=== PATIENT | female | born 1940 ===

== ENCOUNTER 2018-01-19 11:20 | Emergency (ER) | payer MEDICARE ==
[2018-01-19 11:41] VITALS: BMI 31.7
[2018-01-19 11:51] VITALS: RESP 18
--- NOTE | 2018-01-19 12:59 | RAD ---
PROCEDURE: Radiographs of the left elbow. HISTORY: r/o fx COMPARISON: No prior. FINDINGS: BONES: Bone alignment is normal. There is no acute displaced fracture or bone destruction. There is diffuse bone demineralization. JOINTS: Normal. No osteoarthritis. SOFT TISSUES: Normal. JOINT EFFUSION: None. OTHER FINDINGS: None IMPRESSION: No acute displaced fracture or dislocation.
--- NOTE | 2018-01-19 13:03 | RAD ---
PROCEDURE: Left Hand Radiographs. HISTORY: r/o fx COMPARISON: None. FINDINGS: BONES: There is an acute nondisplaced fracture in the base of the proximal phalanx of the little finger. Bone alignment is normal. There is diffuse bone demineralization. JOINTS: Normal. No osteoarthritic changes. SOFT TISSUES: There is soft tissue swelling in the proximal little finger. OTHER FINDINGS: None. IMPRESSION: Acute nondisplaced fracture in the base of the proximal phalanx of the little finger with overlying soft tissue swelling.
[2018-01-19 14:06] VITALS: BP 135/76; PULSE 85; TEMP 98.9; O2SAT 98
--- NOTE | 2018-01-19 15:58 | ED PDOC ---
Arrival/HPI - General Chief Complaint: Trauma Time Seen by Provider: 01/19/18 12:07 Historian: Patient - History of Present Illness Narrative History of Present Illness (Text): 01/19/18 15:54 A 77 year old female presents to the emergency department complaining of left hand pain after a mechanical fall 6 days ago. Patient reports she tripped and extended her left arm to catch her fall. She denies any symptoms prior to fall. Patient did not seek any medical care prior to todays visit. Patient denies any other injuries, loss of consciousness, head trauma, headache, dizziness, neck pain, nausea, vomiting, abdominal pain, back pain, chest pain, shortness of breath or any other complaints. Time/Duration: Other (6 days ago ) Symptom Course: Unchanged Context: Tripped Past Medical History - Provider Review Nursing Documentation Reviewed: Yes - Infectious Disease Hx of Infectious Diseases: None - Reproductive Menopause: Yes - Cardiac Hx Hypertension: Yes - Musculoskeletal/Rheumatological Hx Arthritis: Yes - Psychiatric Hx Substance Use: No Family/Social History - Physician Review Nursing Documentation Reviewed: Yes Family/Social History: No Known Family HX Smoking Status: Never Smoked Hx Alcohol Use: No Hx Substance Use: No Allergies/Home Meds Allergies/Adverse Reactions: Allergies No Known Allergies Allergy (Unverified 01/19/18 12:07) Review of Systems - Physician Review All systems were reviewed & negative as marked: Yes - Review of Systems Constitutional: absent: Fevers, Night Sweats Respiratory: absent: SOB Cardiovascular: absent: Chest Pain Gastrointestinal: absent: Abdominal Pain, Nausea, Vomiting Musculoskeletal: Other (left hand pain). absent: Back Pain, Neck Pain Neurological: absent: Headache, Dizziness Physical Exam Vital Signs Reviewed: Yes Vital Signs Temp Pulse Resp BP Pulse Ox 01/19/18 14:05 98.9 F 85 18 135/76 98 01/19/18 11:50 99.0 F 90 18 147/87 97 Temperature: Afebrile Blood Pressure: Normal Pulse: Regular Respiratory Rate: Normal Appearance: Positive for: Well-Appearing, Non-Toxic, Comfortable Pain Distress: None Mental Status: Positive for: Alert and Oriented X 3 - Systems Exam Head: Present: Atraumatic, Normocephalic Pupils: Present: PERRL Extroacular Muscles: Present: EOMI Conjunctiva: Present: Normal Mouth: Present: Moist Mucous Membranes Neck: Present: Normal Range of Motion. No: MIDLINE TENDERNESS, Paraspinal Tenderness Respiratory/Chest: Present: Clear to Auscultation, Good Air Exchange. No: Respiratory Distress, Accessory Muscle Use Cardiovascular: Present: Regular Rate and Rhythm, Normal S1, S2. No: Murmurs Abdomen: Present: Normal Bowel Sounds. No: Tenderness, Distention, Peritoneal Signs Back: Present: Normal Inspection. No: Midline Tenderness, Paraspinal Tenderness Upper Extremity: Present: NORMAL PULSES, Neurovascularly Intact, Other ( ecchymosis to left 5th digit). No: Cyanosis, Edema, Normal ROM (decrease ROM to left 5th digit), Temperature Abnormalties Lower Extremity: Present: Normal Inspection, NORMAL PULSES, Normal ROM. No: Edema, CALF TENDERNESS Neurological: Present: GCS=15, CN II-XII Intact, Speech Normal Skin: Present: Warm, Dry, Normal Color. No: Rashes Psychiatric: Present: Alert, Oriented x 3, Normal Insight, Normal Concentration Medical Decision Making ED Course and Treatment: 01/19/18 15:54 Impression: A 77 year old female with left hand pain after mechanical fall 6 days ago Plan: -- Left hand xray -- Left elbow xray -- Reassess and disposition Progress Notes: Report Date : 01/19/2018 12:58:07 PROCEDURE: Radiographs of the left elbow. Dictator : Leah Stewart MD IMPRESSION: No acute displaced fracture or dislocation. Report Date : 01/19/2018 13:01:29 PROCEDURE: Left Hand Radiographs. Dictator : Leah Stewart MD IMPRESSION: Acute nondisplaced fracture in the base of the proximal phalanx of the little finger with overlying soft tissue swelling. I have discussed the results and plan with the patient, who expresses understanding. Patient in agreement with plan to be discharged home. Patient is stable for discharge. Patient was placed in an ulnar gutter splint and instructed to follow up with orthopedist or return if symptoms worsen or new concerning symptoms arise. - RAD Interpretation Radiology Orders: 01/19/18 12:07 ELBOW LEFT 3 VIEWS ROUTINE [RAD] Stat HAND LEFT 3 VIEWS ROUTINE [RAD] Stat - Scribe Statement The provider has reviewed the documentation as recorded by the Scribe Cristina Marinelli Provider Scribe Attestation: All medical record entries made by the Scribe were at my direction and personally dictated by me. I have reviewed the chart and agree that the record accurately reflects my personal performance of the history, physical exam, medical decision making, and the department course for this patient. I have also personally directed, reviewed, and agree with the discharge instructions and disposition. Disposition/Present on Arrival - Present on Arrival Any Indicators Present on Arrival: No History of DVT/PE: No History of Uncontrolled Diabetes: No Urinary Catheter: No History of Decub. Ulcer: No History Surgical Site Infection Following: None - Disposition Have Diagnosis and Disposition been Completed?: Yes Diagnosis: Finger fracture Disposition: HOME/ ROUTINE Disposition Time: 12:35 Condition: GOOD Discharge Instructions (ExitCare): Cast Care, Finger Fracture (DC) Additional Instructions: Thank you for letting us take care of you today. The emergency medical care you received today was directed at your acute symptoms. If you were prescribed any medication, please fill it and take as directed. It may take several days for your symptoms to resolve. Return to the Emergency Department if your symptoms worsen, do not improve, or if you have any other problems. Please contact your doctor or call one of the physicians/clinics you have been referred to that are listed on the Patient Visit Information form that is included in your discharge packet. Bring any paperwork you were given at discharge with you along with any medications you are taking to your follow up visit. Our treatment cannot replace ongoing medical care by a primary care provider (PCP) outside of the emergency department. Thank you for allowing the [facility] team to be part of your care today. Keep the splint clean and dry and do not take it off. Follow up with the orthopedic doctor in 3-4 days for re-evaluation and further management. Prescriptions: Ibuprofen [Motrin] 600 mg PO Q6 PRN #20 tab PRN Reason: Pain, Moderate (4-7) Referrals: Shon Davis III, MD [Medical Doctor] - Follow up with primary Forms: [facility] ([place])
== END 2018-01-19 13:57 | disposition home or self-care (01) ==
LOC: ED 11:20 → MERGE 11:20 → ED 13:57
DX: S62.617A Displaced fracture of proximal phalanx of left little finger, initial encounter for closed fracture (principal); W01.0XXA Fall on same level from slipping, tripping and stumbling without subsequent striking against object, initial encounter; I10 Essential (primary) hypertension